=== PATIENT | female | born 1995 | race Hispanic/Latino ===

== ENCOUNTER 2022-12-30 18:35 | Emergency (ER) | payer OTHER ==
[~2022-12-30] VITALS: Ht 142.2 cm; Wt 62.0 kg
--- OUTSIDE RECORDS SUMMARY | 2022-12-30 18:44 | XMS ---
PreManage Notification: YOLA CASEY [employer] Events No recent Security Events currently on file CRITERIA MET - [facility] - 2 Visits in 30 Days CARE PROVIDERS There are no care providers on record at this time. Joe has no Care Guidelines for this patient. Jennifer VISIT COUNT (12 MO.) [address] TOTAL 3 NOTE: Visits indicate total known visits. ED/C VISIT TRACKING (12 MO.) [facility] COMPLAINT: - BURING PAIN ON FACE 12/19/2022 18:49 [employer] [place] TYPE: Emergency DIAGNOSES: - Persistent migraine aura without cerebral infarction, not intractable, with status migrainosus - Hypertension, headaches, R eye pain 01/17/2022 13:13 [employer] [place] TYPE: Emergency DIAGNOSES: - Influenza due to other identified influenza virus with other respiratory manifestations - Low back pain, unspecified - CHEST PAIN, BACK PAIN, HIGH BLOOD PRESSURE INPATIENT VISIT TRACKING (12 MO.) No inpatient visits to display in this time frame [email or web address]
[2022-12-30] MEDS ORDERED: LISINOPRIL-HCT1 EAC2 PO (19:29)
[2022-12-30 19:40] LABS: BASOPHILS 0.3 % (0-2); EOSINOPHILS 1.8 % (0-6); HEMATOCRIT 39.6 % (35.0-50.0); HEMOGLOBIN 13.2 g/dL (12.0-18.0); LYMPHOCYTES 38.6 % (24-44); MCH 27.6 (27-36); MCHC 33.4 g/dl (30-36); MCV 82.7 fl (81-99); MONOCYTES 6.7 % (0-12); NEUTROPHILS 52.6 % (39-80); PLATELET COUNT 138 K/uL (140-440); RBC 4.79 M/ul (4.3-5.7); RDW 14.9 (10.5-15.0)
[2022-12-30 19:57] LABS: ALBUMIN 4.3 g/dL (3.4-5.0); ALBUMIN/GLOBULIN RATIO 1.3 (1.1-2.4); ANION GAP 13.7 (7-21); BILIRUBIN, TOTAL 0.3 ng/dL (0.2-1.0); BUN/CREATININE RATIO 16.39 (6.0-28.6); CALCIUM 9.2 mg/dL (8.5-10.1); CREATININE, SERUM 0.61 mg/dL (0.55-1.02); POTASSIUM 3.7 mmol/L (3.5-5.1); PROTEIN, TOTAL 7.6 g/dL (6.4-8.2)
[2022-12-30 20:51] LABS: ERYTHROCYTE SEDIMENTATION RATE 12
[2022-12-30] MEDS ORDERED: CARBAMAZEPINE200 MG PO (21:03)
[2022-12-30] MEDS ORDERED: HYDROCODON-ACE1 EA10 PO (21:03)
[2022-12-30 21:22] VITALS: BP 140/82
== END 2022-12-30 21:22 | disposition home or self-care (01) ==
LOC: ED 18:35
PROVIDERS: Family Medicine
DX: G50.0 Trigeminal neuralgia (principal); I10 Essential (primary) hypertension; Z79.899 Other long term (current) drug therapy
CPT/HCPCS: 36415; 70450; 80053; 85025; 85651; 86140; 96374; 99284-25; A9270; J2270